=== PATIENT | male | born 1970 | race Caucasian/White ===

== ENCOUNTER 2018-11-28 18:25 | Emergency (ER) | payer OTHER ==
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
[2018-11-28 20:47] VITALS: BP 117/81
== END 2018-11-28 20:44 | disposition home or self-care (01) ==
DX: S20.222A Contusion of left back wall of thorax, initial encounter (principal); V19.9XXA Pedal cyclist (driver) (passenger) injured in unspecified traffic accident, initial encounter; Y93.55 Activity, bike riding